=== PATIENT | female | born 1965 | race Two or more races ===

== ENCOUNTER 2016-11-15 09:03 | Day surgery (SDC) | payer MEDICAID ==
[2016-11-14 12:11] VITALS: BMI 28.0
[2016-11-15] VITALS (10 sets, daily range): BP systolic 113–136; BP diastolic 60–74; PULSE 66–94; RESP 16–18; Ht 152.4 cm; Wt 63.0 kg
[~2016-11-15] VITALS: Ht 152.4 cm; Wt 63.0 kg
[~2016-11-15 09:03] MED LIST: CEFAZOLIN 1 GM INJ ONE; CEFAZOLIN 2 GM/50 ML (PMX) 50 ML IVPB ONE; EPHEDrine SULFATE 50 MG/5 ML SYG ONE; SOD CHLORIDE 0.9% 1,000 ML IV SCH
[2016-11-15] MEDS ORDERED: ESOM40CA PO (10:04)
[2016-11-15] MEDS ORDERED: FAMO20TA18 PO (10:04)
[2016-11-15] MEDS ORDERED: TRAM-40 PO (10:04)
[2016-11-15] MEDS ORDERED: LOVA20TA PO (10:04)
[2016-11-15] MEDS ORDERED: OMEP20CA16 PO (10:04)
[2016-11-15] MEDS ORDERED: IBUP400T22 PO (10:04)
[2016-11-15] MEDS ORDERED: RANI150T5 PO (10:04)
[2016-11-15] MEDS ORDERED: MIDAZOLAM 1 MG/ML 2 ML INJ ONE (12:23)
[2016-11-15] MEDS ORDERED: LIDOCAINE 2% (SDV) 5 ML INJ ONE (12:23)
[2016-11-15] MEDS ORDERED: PROPOFOL 20 ML ONE ×2 (12:23→12:44)
[2016-11-15] MEDS ORDERED: FENTAnyl 50 MCG/ML VIAL ONE (12:35)
[2016-11-15] MEDS ORDERED: ONDANSETRON 4 MG INJ ONE (12:38)
[2016-11-15] MEDS ORDERED: DEXAMETHASONE 4 MG/ML 1 ML INJ ONE (12:38)
[2016-11-15] MEDS ORDERED: METOCLOPRAMIDE 10 MG INJ ONE (12:38)
[2016-11-15] MEDS ORDERED: HYDROmorphONE 2 MG/ML SYG ONE (12:46)
[2016-11-15] MEDS ORDERED: PHENYLephrine (100 MCG/ML) 5ML SYG ONE (12:47)
[2016-11-15] MEDS ORDERED: MEPERIDINE 25 MG INJ IV PRN (13:00)
[2016-11-15] MEDS ORDERED: FENTAnyl 50 MCG/ML VIAL IV PRN (13:00)
[2016-11-15] MEDS ORDERED: ONDANSETRON 4 MG INJ IV PRN (13:00)
[2016-11-15] MEDS ORDERED: PROCHLORPERAZINE 10 MG INJ IV PRN (13:00)
[2016-11-15] MEDS ORDERED: OXYCODONE/ACETAMINOPHEN (5/325) TAB PO PRN (13:00)
[2016-11-15] MEDS ORDERED: HYDROmorphONE (0.2 MG/ML) 10ML SYG IV PRN (13:00)
[2016-11-15] MEDS ORDERED: DIPHENHYDRAMINE 50 MG INJ IV PRN (13:00)
[2016-11-15] MEDS ORDERED: HYDROCODONE/APAP (5/325) TAB PO ONE (14:30)
--- NOTE | 2016-11-15 15:36 | OPR ---
DATE OF OPERATION: 11/15/2016 PREOPERATIVE DIAGNOSIS: Right breast lesion and papilloma, rule out malignancy. POSTOPERATIVE DIAGNOSIS: Right breast lesion and papilloma, rule out malignancy. OPERATION PERFORMED: Excision of right breast lesion. ANESTHESIA: General. ANESTHESIOLOGIST: Dr. Servin. SURGEON: Brent Jones MD [employer] SUPERVISOR: Dr. Knowles. INDICATIONS FOR PROCEDURE: The patient is a 51-year-old female who presented with a palpable mass i n her right breast. She underwent a core biopsy which revealed a papilloma with atypia. A full exc isional biopsy was recommended. Patient consented and was scheduled for surgery. DESCRIPTION OF PROCEDURE: The patient was brought to the operating theater, placed under general an esthesia. The right breast was prepped and draped in usual sterile fashion. The palpable mass was very close to the nipple areolar border at approximately the 9 o'clock location. A curvilinear inci karen was made over it. Subcutaneous tissue was dissected with cautery. Skin hooks were then utiliz ed to elevate the skin edges and wide circumferential dissection took place of the mass, taking grea t care to ensure adequate margin. The specimen was elevated, transected, oriented, and sent for per manent pathologic analysis. The wound was then irrigated. Minimal bleeding was controlled with cau kim and the skin was reapproximated with 4-0 Vicryl suture in subcuticular fashion. Benzoin and St tomy-Strips were applied. Patient tolerated procedure well. Estimated blood loss was 20 mL. There were no complications and the patient was transported in stable condition to the recovery room. Dictated By: BRENT ASKEW/GE Conf#: [id number] DID#: [id number]
== END 2016-11-15 15:10 | disposition home or self-care (01) ==
LOC: SDS 09:03
PROVIDERS: ATTEND Surgery Surgical Oncology
DX: D05.11 Intraductal carcinoma in situ of right breast (principal); E78.5 Hyperlipidemia, unspecified
CPT/HCPCS: 19120; 88307; J0690; J1100; J1170; J2250; J2370; J2405; J2765; J3010; Z7512; Z7610

== ENCOUNTER 2016-12-06 10:19 | Day surgery (SDC) | payer MEDICAID ==
[2016-12-06] VITALS (14 sets, daily range): BP systolic 114–163; BP diastolic 58–72; PULSE 65–98; RESP 11–28; Ht 165.1 cm; Wt 63.1 kg
[~2016-12-06] VITALS: Ht 165.1 cm; Wt 63.1 kg
[~2016-12-06 10:19] MED LIST changes: -CEFAZOLIN 1 GM INJ ONE; -EPHEDrine SULFATE 50 MG/5 ML SYG ONE; +ESOM40CA PO; +FAMO20TA18 PO; +IBUP400T22 PO; +LOVA20TA PO; +OMEP20CA16 PO; +RANI150T5 PO; +TRAM-40 PO
--- NOTE | 2016-12-06 11:16 | RADRPT ---
PROCEDURE: XR Chest. CLINICAL INDICATION: Preoperative TECHNIQUE: Single frontal view of the chest was obtained COMPARISON: None FINDINGS: The heart and mediastinum are within normal limits. The lungs are clear. There is no pleural effusion or pneumothorax. RPTAT: AA IMPRESSION: No acute disease. .Anirudh Todd MD, Date Time Electronically viewed and signed by .Anirudh Todd MD, on 12/06/2016 11:16 .S/
[2016-12-06 11:17] LABS: ADD SCAN DIFF NO
[2016-12-06 11:23] LABS: BASOPHILS % 0.6 % (0.0-2.0); EOSINOPHILS # 0.2 10^3/ul (0.0-0.5); EOSINOPHILS % 2.7 % (0.0-7.0); HEMATOCRIT 39.8 % (37.0-47.0); HEMOGLOBIN 13.5 g/dl (12.0-16.0); LYMPHOCYTES # 2.3 10^3/ul (0.8-2.9); LYMPHOCYTES % 36.7 % (15.0-51.0); MEAN CORPUSCULAR HEMOGLOBIN 28.9 pg (29.0-33.0); MEAN CORPUSCULAR HGB CONC 33.9 g/dl (32.0-37.0); MEAN CORPUSCULAR VOLUME 85.2 fl (82.0-101.0); MEAN PLATELET VOLUME 9.2 fl (7.4-10.4); MONOCYTE # 0.4 10^3/ul (0.3-0.9); MONOCYTES % 6.8 % (0.0-11.0); NEUTROPHIL # 3.4 10^3/ul (1.6-7.5); PLATELET COUNT 414 10^3/UL (140-415); RED BLOOD COUNT 4.67 10^6/ul (4.20-5.40); RED CELL DISTRIBUTION WIDTH 12.6 % (11.5-14.5); WHITE BLOOD COUNT 6.4 10^3/ul (4.8-10.8)
[2016-12-06 11:33] LABS: INR 0.93; PROTIME 12.5 Sec (12.2-14.2)
[2016-12-06 11:40] LABS: CALCIUM 9.3 mg/dl (8.4-10.2); CREATININE 0.53 mg/dl (0.44-1.00); POTASSIUM 4.1 mmol/L (3.5-5.1)
[2016-12-06] MEDS ORDERED: PROPOFOL 20 ML ONE ×3 (12:46→13:25)
[2016-12-06] MEDS ORDERED: ONDANSETRON 4 MG INJ ONE (12:47)
[2016-12-06] MEDS ORDERED: FENTAnyl 50 MCG/ML VIAL ONE (12:47)
[2016-12-06] MEDS ORDERED: MIDAZOLAM 1 MG/ML 2 ML INJ ONE (12:47)
[2016-12-06] MEDS ORDERED: METOCLOPRAMIDE 10 MG INJ ONE (12:47)
[2016-12-06] MEDS ORDERED: CEFAZOLIN 1 GM INJ ONE (12:48)
[2016-12-06] MEDS ORDERED: ONDANSETRON 4 MG INJ IV PRN (13:00)
[2016-12-06] MEDS ORDERED: MEPERIDINE 25 MG INJ IV PRN (13:00)
[2016-12-06] MEDS ORDERED: DIPHENHYDRAMINE 50 MG INJ IV PRN (13:00)
[2016-12-06] MEDS ORDERED: OXYCODONE/ACETAMINOPHEN (5/325) TAB PO PRN ×2 (13:00)
[2016-12-06] MEDS ORDERED: METOCLOPRAMIDE 10 MG INJ IV PRN (13:00)
[2016-12-06] MEDS ORDERED: HYDROmorphONE (0.2 MG/ML) 10ML SYG IV PRN ×3 (13:00)
[2016-12-06] MEDS ORDERED: DIPHENHYDRAMINE 50 MG INJ ONE (13:11)
[2016-12-06] MEDS ORDERED: HYDROmorphONE 2 MG/ML SYG ONE (13:24)
[2016-12-06] MEDS ORDERED: EPHEDrine SULFATE 50 MG/5 ML SYG ONE (13:53)
--- NOTE | 2016-12-06 15:00 | OPR ---
DATE OF OPERATION: 12/06/2016 PREOPERATIVE DIAGNOSIS: Ductal carcinoma in situ, right breast. Need for right mastectomy. POSTOPERATIVE DIAGNOSIS: Ductal carcinoma in situ, right breast. Need for right mastectomy. PROCEDURE: Right mastectomy with axillary lymph node sampling. ANESTHESIA: General. ANESTHESIOLOGIST: Dr. Durán SURGEON: Brent Jones MD PROFESSOR OF FOOD BIOCHEMISTRY: Nacho Leon MD INDICATIONS FOR PROCEDURE: The patient is a 51-year-old female who on routine mammographic screenin g was found to have a suspicious area in her right breast. Subsequent excisional biopsy revealed du ctal carcinoma in situ, at least 5 cm, with positive margins. The patient underwent a discussion re lated to attempt at reexcision plus radiation versus mastectomy. She wished to proceed with a maste ctomy. She consented and was scheduled for surgery. DESCRIPTION OF PROCEDURE: The patient was brought to the operating theater and placed under general anesthesia. The right breast was prepped and draped in the usual sterile fashion. An elliptical i ncision, including the nipple, areolar complex and the previous surgical incision, was demarcated wi th a marking pen and carried out with a 15 blade scalpel. The subcutaneous tissue was dissected wit h cautery. Allis-Ossineke skin clamps were utilized to elevate the skin edges and skin flaps were then created with cautery, first superiorly to the clavicle, then medially to the sternal border, inferi soraya to the inframammary fold, and laterally to the latissimus dorsi muscle, was identified througho ut its course. Mastectomy then took place from medial to lateral using cautery. At the border of t he pectoralis major muscle, the pectoralis minor muscle was identified. The clavipectoral fascia wa s incised and some level 1 lymph node tissue was resected, with the specimen. It was removed, orien ravinder and sent for pathologic analysis. At this point, Dr. Jones inspected the axilla. There was one very large lymph node. It was not clear if this possibly represented metastatic disease. This lymp h node was removed and sent separately for pathologic analysis. The wound was then irrigated. Mini mal bleeding was controlled with cautery. A #10 Jaison-Espinoza drain was then brought through the [facility] mid axillary line, cut to size, and laid over the pectoralis major muscle. It was secured in pl catherine with 2-0 nylon, sutured in the standard fashion. The skin was then reapproximated with 4-0 Vicr yl sutures in deep dermal fashion. Subsequently final skin approximation took place, also with 4-0 Vicryl sutures, in subcuticular fashion, and benzoin and Steri-Strips were applied. The patient tyshawn erated the procedure well. Estimated blood loss was 50 mL. There were no complications and the pat ient was transported in stable condition to the recovery room, where a circumferential compression d ressing was applied. Dictated By: BRENT JONES MD TL/GE Conf#: [id number] DID#: [id number]
--- NOTE | 2016-12-10 17:50 | RADRPT ---
Vent Rate: 58 bpm RR Interval: 0 msec PA Interval: 166 msec QRS Duration: 84 msec QT Interval: 432 msec QTC Interval: 424 msec P-R-T [place]: 55 - 40 - 57 degrees Sinus bradycardia Otherwise normal ECG Electronically Signed By: Eric Marte [id number]
== END 2016-12-06 17:17 | disposition home or self-care (01) ==
LOC: MERGE 10:19 → SDS 10:19
PROVIDERS: ATTEND Surgery Surgical Oncology
DX: Z85.3 Personal history of malignant neoplasm of breast (principal)
CPT/HCPCS: 71010; 80048; 84703; 85025; 85610; 85730; 88307; 93005; J0690; J1170; J1200; J2175; J2250; J2405; J2765; J3010